=== PATIENT | male | born 1945 | race African-American/Black ===

== ENCOUNTER 2021-04-15 11:54 | Emergency (ER) | payer MEDICAID, MEDICARE, OTHER ==
[~2021-04-15] VITALS: Ht 177.8 cm; Wt 75.0 kg
[2021-04-15 12:56] LABS: BASOPHILS % 0.3 % (0.0-2.0); EOSINOPHILS % 0.9 % (0.0-5.0); HEMATOCRIT. 50.5 % (42.0-52.0); HEMOGLOBIN. 17.2 g/dL (14.0-18.0); LYMPHOCYTES % 11.5 % (20.0-50.0); MEAN CORPUSCULAR HEMOGLOBIN 33.5 pg (28.0-32.0); MEAN CORPUSCULAR VOLUME 98.3 fL (80.0-94.0); MEAN PLATELET VOLUME 9.7 fl (7.4-10.4); MONOCYTES % 9.6 % (2.0-8.0); NEUTROPHILS % 77.7 % (40.0-76.0); PLATELET 113 x1000/uL (130-400); RED BLOOD CELL COUNT 5.14 mill/uL (4.7-6.1); RED CELL DISTRIBUTION WIDTH 13.1 % (11.6-14.6)
[2021-04-15 13:06] LABS: CHLORIDE 109 mEq/L (98-107)
[2021-04-15] MEDS ORDERED: HYDROCODONE/ACETAMINOPHEN 5/325MG TABLET PO ONE (15:00)
[2021-04-15] MEDS ORDERED: HYDR-4001 MT (15:34)
[2021-04-15 16:06] VITALS: BP 148/62
== END 2021-04-15 16:21 | disposition home or self-care (01) ==
LOC: ER 11:54
DX: M25.551 Pain in right hip (principal); Z87.828 Personal history of other (healed) physical injury and trauma; I11.9 Hypertensive heart disease without heart failure; Z98.61 Coronary angioplasty status
CPT/HCPCS: 36415; 72110; 73503; 80053; 85025; 93971; 99291